=== PATIENT | female | born 1985 | race Caucasian/White ===

== ENCOUNTER 2019-09-29 11:08 | Emergency (ER) | payer MEDICAID ==
[2019-09-29 12:09] LABS: Bilirubin Negative (Negative); Blood, Urine 1+ (Negative); Clarity Clear (Clear); Glucose, Urine (Dipstick) Normal (Negative); Leukocyte 250 Leu/uL (Negative); Nitrite Negative (Negative); Protein, Urine (Dipstick) 10 mg/dL (Neg-Trace); RBC/HPF 0-3 HPF (0-3); Urobilinogen Normal mg/dL (Less than 2)
[2019-09-29 12:11] LABS: Bacteria/HPF 2+ HPF (None Seen)
== END 2019-09-29 12:21 | disposition home or self-care (01) ==
LOC: ERS 11:08
DX: N30.00 Acute cystitis without hematuria (principal); J45.909 Unspecified asthma, uncomplicated; I10 Essential (primary) hypertension; Z79.899 Other long term (current) drug therapy
CPT/HCPCS: 81003; 81015; 99283

== ENCOUNTER 2019-10-23 22:28 | Emergency (ER) | payer MEDICAID, SELFPAY ==
[2019-10-23] MEDS ORDERED: diphenhydrAMINE 25 MG CAP ONE (23:12)
[2019-10-23] MEDS ORDERED: Metoclopramide HCl 10 MG/2 ML VIAL ONE (23:12)
[2019-10-23] MEDS ORDERED: Ibuprofen 800 MG TAB ONE (23:12)
[2019-10-23] MEDS ORDERED: Metoclopramide HCl 10 MG TAB ONE (23:12)
== END 2019-10-23 23:17 | disposition home or self-care (01) ==
LOC: ERS 22:28
DX: G43.909 Migraine, unspecified, not intractable, without status migrainosus (principal); J45.909 Unspecified asthma, uncomplicated; I10 Essential (primary) hypertension; Z79.899 Other long term (current) drug therapy
CPT/HCPCS: 99283; J2765; Q0163

== ENCOUNTER 2019-11-21 10:17 | Emergency (ER) | payer SELFPAY | END 2019-11-21 11:03 | disposition home or self-care (01) | LOC: ERS 10:17 | DX: J11.1 Influenza due to unidentified influenza virus with other respiratory manifestations (principal); J45.909 Unspecified asthma, uncomplicated; I10 Essential (primary) hypertension; Z79.899 Other long term (current) drug therapy | CPT/HCPCS: 99283 ==

== ENCOUNTER 2019-12-28 13:42 | Emergency (ER) | payer SELFPAY ==
[2019-12-28 14:45] LABS: #Eosinphils 0.1 thou/uL (0.0-0.7); #Lymphocytes 1.9 thou/uL (1.20-3.40); #Monocytes 0.3 thou/uL (0.11-0.59); #Neutrophils 3.1 thou/uL (1.40-6.50); %Basophils 0.6 % (0.0-1.0); %Eosinophils 1.6 % (0.0-10.0); %Lymphocytes 35.5 % (21.0-51.0); %Monocytes 5.9 % (0.0-10.0); %Neutrophils 56.4 % (42.0-75.0); Hemoglobin 14.3 g/dL (12.0-16.0); Mean Corpuscular HGB CONC 34.6 g/dL (32.0-36.0); Mean Corpuscular Hemoglobin 30.8 pg (27.0-31.0); Mean Corpuscular Volume 89.2 fL (78.0-98.0); Mean Platelet Volume 8.5 fL (7.4-10.4); Platelet Count 309 thou/uL (130-400); RBC Distribution Width 12.5 % (11.5-14.5); Red Blood Cell (RBC) Count 4.65 mill/uL (4.20-5.40); White Blood Cell (WBC) Count 5.4 thou/uL (4.8-10.8)
[2019-12-28 14:46] LABS: Bilirubin Negative (Negative); Blood, Urine Negative (Negative); Clarity Clear (Clear); Glucose, Urine (Dipstick) Normal (Negative); Leukocyte 500 Leu/uL (Negative); Nitrite Negative (Negative); Pregnancy Test - Urine (BHCG) Negative (Negative); Pregu Control Background? CLEAR/WHITE (CLR/WHITE); Pregu Control Bar Appear? YES (CONTROL BAR); Protein, Urine (Dipstick) Negative (Neg-Trace); Specific Gravity 1.009 (1.002-1.036); Urobilinogen Normal mg/dL (Less than 2); WBC/HPF 21-50 HPF (0-3)
[2019-12-28 14:47] LABS: Bacteria/HPF 1+ HPF (None Seen)
[2019-12-28 15:04] LABS: ALT (SGPT) 31 U/L (8-55); AST (SGOT) 26 U/L (5-34); Albumin 4.3 g/dL (3.5-5.0); Alkaline Phosphatase 123 U/L (40-110); Anion Gap 13 mmol/L (10-20); BUN (Urea Nitrogen) 8 mg/dL (7.0-18.7); Bilirubin, Total 0.7 mg/dL (0.2-1.2); Calc. Creatinine Clearance 0 mL/min (70-130); Calcium 9.2 mg/dL (7.8-10.44); Carbon Dioxide 22 mmol/L (22-29); Chloride 108 mmol/L (98-107); Estimated GFR-MDRD Greater than 90; Globulin 4.3 g/dL (2.4-3.5); Glucose 79 mg/dL (70-105); Potassium 4.1 mmol/L (3.5-5.1); Protein, Total 8.6 g/dL (6.0-8.3); Sodium 139 mmol/L (136-145)
[2019-12-28] MEDS ORDERED: Ketorolac Tromethamine 30 MG/ML VIAL ONE (16:59)
[2019-12-28] MEDS ORDERED: cefTRIAXone\\ROCEPHIN 1 GM VIAL ONE (16:59)
== END 2019-12-28 18:14 | disposition home or self-care (01) ==
LOC: ERS 13:42
DX: N39.0 Urinary tract infection, site not specified (principal); R55 Syncope and collapse
CPT/HCPCS: 36415; 36416; 80053; 81003; 81015; 81025; 85025; 87077; 87086; 87186; 87804; 93005; 96365; 96375; J0696; J1885

== ENCOUNTER 2020-03-05 15:26 | Emergency (ER) | payer SELFPAY ==
[2020-03-05 15:46] LABS: Pregnancy Test - Urine (BHCG) POSITIVE (Negative); Pregu Control Background? CLEAR/WHITE (CLR/WHITE); Pregu Control Bar Appear? YES (CONTROL BAR); Specific Gravity 1.033 (1.002-1.036)
[2020-03-05 15:47] LABS: Bacteria/HPF 4+ HPF (None Seen); Bilirubin Negative (Negative); Blood, Urine 2+ (Negative); Clarity Turbid (Clear); Glucose, Urine (Dipstick) Normal (Negative); Leukocyte 500 Leu/uL (Negative); Nitrite 1+ (Negative); Protein, Urine (Dipstick) 100 mg/dL (Neg-Trace); RBC/HPF Greater than 50 HPF (0-3); WBC/HPF Greater than 50 HPF (0-3)
[2020-03-05 16:26] LABS: #Basophils 0.1 thou/uL (0.0-0.2); #Monocytes 0.6 thou/uL (0.11-0.59); #Neutrophils 5.3 thou/uL (1.40-6.50); %Basophils 0.8 % (0.0-1.0); %Eosinophils 0.5 % (0.0-10.0); %Lymphocytes 25.5 % (21.0-51.0); %Neutrophils 66.2 % (42.0-75.0); Hemoglobin 14.2 g/dL (12.0-16.0); Mean Corpuscular HGB CONC 34.6 g/dL (32.0-36.0); Mean Corpuscular Hemoglobin 30.9 pg (27.0-31.0); Mean Corpuscular Volume 89.4 fL (78.0-98.0); Mean Platelet Volume 8.4 fL (7.4-10.4); Platelet Count 254 thou/uL (130-400); RBC Distribution Width 12.8 % (11.5-14.5)
[2020-03-05 16:40] LABS: ALT (SGPT) 69 U/L (8-55); AST (SGOT) 44 U/L (5-34); Albumin 4.4 g/dL (3.5-5.0); Alkaline Phosphatase 109 U/L (40-110); Anion Gap 15 mmol/L (10-20); BUN (Urea Nitrogen) 8 mg/dL (7.0-18.7); Bilirubin, Total 0.8 mg/dL (0.2-1.2); Calc. Creatinine Clearance 0 mL/min (70-130); Calcium 9.3 mg/dL (7.8-10.44); Carbon Dioxide 20 mmol/L (22-29); Chloride 103 mmol/L (98-107); Estimated GFR-MDRD Greater than 90; Glucose 85 mg/dL (70-105); Potassium 3.8 mmol/L (3.5-5.1); Protein, Total 8.4 g/dL (6.0-8.3); Sodium 134 mmol/L (136-145)
--- NOTE | 2020-03-05 18:07 | ULT ---
Exam: Transabdominal and endovaginal pelvic ultrasound HISTORY:Positive home test yesterday. Pelvic discomfort. COMPARISON: None TECHNIQUE: Transabdominal and endovaginal imaging of the pelvis is performed. Ovaries are interrogate d with grayscale, color flow, Doppler imaging and spectral wave form analysis FINDINGS: Uterus: No myometrial masses. Uterus measurin.6 x 9.8 x 5.6 cm. Endometrium: Within the endometrium, there is a gestational sac, yolk sac and pole. [place]-rump length is 0.74 cm corresponding to gestational age of 6 weeks 4 days. Hypoechoic focus adjacent to the gestational sac may represent a 0.4 x 2 cm subchorionic hemorrhage. heart tones: 125 bpm . Free fluid: None Right ovary: Normal echotexture Right ovary measurement: 2.5 x 2.0 x 3.3 cm Left ovary: Normal echotexture. Left ovary measurements: 2.0 x 1.7 x 2.7 cm Ovarian Doppler: There is vascular flow to the left and right ovary. IMPRESSION: 1. Single intrauterine gestation with heart tones. Gestational age by crown-rump length is 6 we eks 4 days. 2. Small subchorionic hemorrhage.
== END 2020-03-05 18:22 | disposition home or self-care (01) ==
LOC: ERS 15:26
DX: O23.41 Unspecified infection of urinary tract in pregnancy, first trimester (principal); O20.8 Other hemorrhage in early pregnancy; Z3A.01 Less than 8 weeks gestation of pregnancy
CPT/HCPCS: 36415; 76856; 80053; 81003; 81015; 81025; 84702; 85025; 86850; 86900; 86901; 87077; 87086; 87186; 93976; 99283

== ENCOUNTER 2020-08-22 13:53 | Day surgery (SDC) | payer OTHER ==
[2020-08-22 14:51] VITALS: BMI 38.0
--- NOTE | 2020-08-22 15:10 | PDOC.LDHP ---
Labor and Delivery H&P Chief complaint: abdominal pain HPI: 34 y/o at 30w2d, patient of Dr. Higgins, presents with lower abdominal pain for 2 months, and intermittent dizziness for the last month. She describes the pain as sharp, lasting a few seconds. Better when she is able to lie down and rest. Dizziness described as lightheadedness when she changes positions; does not pass out. Drinks 3 bottles of water a day. Denies VB, LOF, ctx, or decreased FM. ROS neg for HEENT, cv, pulm, gi, gu, neuro, psych, musculoskeletal or constitutional symptoms other than mentioned above. OB History Details: 1 prior Current complications: none Past Medical History: RLS GERD Recurrent UTIs Current medications: pre- vitamins, other (Keflex) Previous surgical history: none Allergies/Adverse Reactions: Allergies Allergy/AdvReac Type Severity Reaction Status Date / Time No Known Allergies Allergy Verified 08/22/20 14:40 Social history: none - Physical Exam Vital signs reviewed and normal: yes General: NAD, resting Lungs: nonlabored breathing Abdomen: gravid Extremeties: no edema FHT: category 1 [place] contractions every: none - Assessment 34 y/o at 30w2d with musculoskeletal discomforts of . status reassuring with reactive NST. - Plan -: Comfort measures discussed. Advised to drink more water. D/c home with precautions. Advised to keep all appointments.
[2020-08-22] MEDS ORDERED: FLU VACC QS2020-21(6MOS UP)/PF 60 MCG/0.5 ML SYRINGE IM ONE (15:15)
== END 2020-08-22 15:19 | disposition home or self-care (01) ==
LOC: L&D/OP 13:53
PROVIDERS: ATTEND Obstetrics & Gynecology
DX: O26.893 Other specified pregnancy related conditions, third trimester (principal); R10.30 Lower abdominal pain, unspecified; R42 Dizziness and giddiness; O23.43 Unspecified infection of urinary tract in pregnancy, third trimester; Z3A.30 30 weeks gestation of pregnancy
CPT/HCPCS: 99282

== ENCOUNTER 2020-10-09 14:11 | Day surgery (SDC) | payer OTHER ==
[2020-10-09 14:36] VITALS: BP 117/66; TEMP 98.7
[2020-10-09 14:40] VITALS: BMI 38.4
[2020-10-09] MEDS ORDERED: hydrALAZINE 20 MG/ML VIAL SLOW IVP PRN (15:10)
--- NOTE | 2020-10-09 15:12 | PDOC.FPROB ---
FMR OB H&P: HPI - History of Present Illness Chief Complaint: contractions Indentification: 34 yo at 37.4 wga History of Present Illness: Patient reports onset of painful contractions around 9 pm last night which lasted until midnight. She could not really time them because the pain lasted for quite a while she said. She fell asleep until 4 am when the contractions woke her up again. Since then, they have not slowed down despite her eating/drinking water. In office last week, says she was 3 cm dilated. Denies vaginal bleeding, discharge, LOF. Endorses FM. Primary Care Physician: Monica FMR OB H&P: Current - Care : 2 Para: 1001 Gestational age: 37.4 Due date: 10/26/2020 Course/Complications: Anemia of - OB Labs Blood type: O RH: positive Antibody Screen: negative HIV: negative RPR: negative HepBsAg: negative Rubella: immune Quad screen: negative Urine drug screen: negative Gonorrhea: negative Chlamydia: negative 1 hour gtt: 105 GBS: negative FMR OB H&P: History - Past Medical History PMH: Denies - OB History OB History: 1 , complicated by bulging disk s/p epidural, walked w/ a walker for 3 months. Anemia of Denies ever having blood transfusion. - HEARING SPECIALIST History HEARING SPECIALIST History: Recurrent UTIs. On ppx keflex - Surgical History Sx History: Denies - Social History Social History: Denies smoking, drinking, drugs. - Family History Family History: Niece: prader-willi syndrome FMR OB H&P: Medications - Current Home Medications: Medication Instructions Recorded Confirmed Type Cephalexin [Keflex] 500 mg PO DAILY 08/22/20 10/09/20 History Pnv No.103/Folic/Om3s/Fish Oil 1 each PO DAILY 08/22/20 10/09/20 History [ Gummies] Allergies/Adverse Reactions: Allergies Allergy/AdvReac Type Severity Reaction Status Date / Time No Known Allergies Allergy Verified 08/22/20 14:40 FMR OB H&P: ROS - Review of Systems General: denies: fever/chills Eyes: denies: vision changes ENT: denies: nasal congestion, rhinorrhea, sore throat Cardiovascular: denies: chest pain Respiratory: reports: shortness of breath (with changes). denies: cough Gastrointestinal: denies: abdominal pain, nausea, vomiting Genitourinary (Female): reports: contractions. denies: dysuria, vaginal discharge, vaginal bleeding Musculoskeletal: denies: pain Neurologic: reports: headache (mild) Integumentary: denies: rash Hematologic/Lymphatic: denies: prolonged or excessive bleeding Psychological: denies: depression, anxiety FMR OB H&P: Vital Signs - Maternal Vital signs: Vital Signs - First Documented Temp Pulse Resp BP 98.7 F 97 18 117/66 10/09/20 14:36 10/09/20 14:36 10/09/20 14:36 10/09/20 14:36 - Heart Tones Baseline: 140 Variability: moderate Acceleration: present Deceleration: absent Category: category 1 [place] contractions every: 2-4 min FMR OB H&P: Physical Exam - Physical Exam General: NAD, awake, alert and oriented HEENT: normocephalic and atraumatic, no scleral icterus, grossly normal vision, grossly normal hearing Neck: trachea midline Heart: pulses present General: no respiratory distress, good air movement Abdomen: soft, gravid, non-tender Musculoskeletal: FROM in all four extremities Neurological: no focal deficit Skin: no rash Lymphatic: no unusual bruising or bleeding Psychiatric: intact recent and remote memory, normal mood and affect - Pelvic Exam SVE: 3/thick/high, per Rhonda PERALTA Membranes: intact Presentation: vertex, per patient. Estimated Weight: 7 lbs FMR OB H&P: A/P - Problem List (1) Uterine contractions Current Visit: Yes Status: Acute Code(s): [id number] - Disposition: observe on L&D. Recheck cervix in 1-2 hours and assess for change. Discussion: Date/Time: 10/09/20 1510 34 yo at 37.4 wga Contractions - rule out labor - monitor continuous FHT and toco for ~2 hours - will recheck to assess for cervical change - previous delivered around 37 weeks. - GBS negative Anemia of This H&P was discussed with Dr. Frost, who agrees with the above documentation and plan. Signature: Ninfa Watt MD PGY-2
--- NOTE | 2020-10-09 17:33 | PDOC.BPN ---
- Brief Progress Note Encounter Date: 10/09/20 Encounter Time: 16:30 Cervical check essentially unchanged: . Patient appears more comfortable and in less pain. Plan to discharge home. Pt agrees with plan. Return precautions, labor s/s given.
== END 2020-10-09 16:52 | disposition home or self-care (01) ==
LOC: L&D/OP 14:11
PROVIDERS: ATTEND Advanced Practice Midwife
DX: O47.1 False labor at or after 37 completed weeks of gestation (principal); O99.013 Anemia complicating pregnancy, third trimester; D64.9 Anemia, unspecified; Z3A.37 37 weeks gestation of pregnancy
CPT/HCPCS: 99283

== ENCOUNTER 2020-10-14 07:09 | Inpatient (IN) | payer OTHER ==
[2020-10-14] MEDS ORDERED: HYDROcodone/Acetaminophen 5/325 mg Tablet PO PRN ×4 (07:52→15:18)
[2020-10-14] MEDS ORDERED: Ibuprofen 800 MG TAB PO PRN (07:52)
[2020-10-14] MEDS ORDERED: hydrALAZINE 20 MG/ML VIAL SLOW IVP PRN ×2 (07:52→15:18)
[2020-10-14] MEDS ORDERED: Diphenoxylate HCl/Atropine Tablet PO PRN ×2 (07:52)
[2020-10-14] MEDS ORDERED: Carboprost 250 MCG/ML AMP IM PRN (07:52)
[2020-10-14] MEDS ORDERED: Butorphanol Tartrate 1 MG/ML VIAL SLOW IVP PRN (07:52)
[2020-10-14] MEDS ORDERED: Lidocaine 1% (PF) 30 ML VIAL SC PRN (07:52)
[2020-10-14] MEDS ORDERED: Acetaminophen 500 MG TAB PO PRN (07:52)
[2020-10-14] MEDS ORDERED: Promethazine HCl 25 MG/ML VIAL IM PRN (07:52)
[2020-10-14] MEDS ORDERED: Methylergonovine 0.2 MG/ML VIAL IM PRN (07:52)
[2020-10-14] MEDS ORDERED: Misoprostol 200 MCG TAB PR PRN (07:52)
[2020-10-14] MEDS ORDERED: Ondansetron PF 4 MG/2 ML Vial IVP PRN ×2 (07:52→15:18)
[2020-10-14] MEDS ORDERED: Lactated Ringer's 1,000 ML IV SCH (08:00)
[2020-10-14] MEDS ORDERED: DISCONTINUE ALL PREVIOUS NARCOTICS FS SCH (08:15)
[2020-10-14] MEDS ORDERED: Bupivacaine 0.5% 20 ML, fentaNYL Citrate/PF 400 MCG in Sodium Chloride 0.9% 72 ML EPIDURAL SCH (08:15)
[2020-10-14 08:19] LABS: Hemoglobin 11.2 g/dL (12.0-16.0); Mean Corpuscular Hemoglobin 29.1 pg (27.0-31.0); Mean Corpuscular Volume 85.5 fL (78.0-98.0); Mean Platelet Volume 8.2 fL (7.4-10.4); Platelet Count 280 thou/uL (130-400); RBC Distribution Width 13.5 % (11.5-14.5); Red Blood Cell (RBC) Count 3.84 mill/uL (4.20-5.40); White Blood Cell (WBC) Count 8.7 thou/uL (4.8-10.8)
[2020-10-14 08:27] VITALS: BMI 38.4
[2020-10-14 08:57] LABS: Syphilis Antibody Nonreactive (Nonreactive); Syphilis Antibody Index 0.04 S/CO (<1.00 Non-Reactive)
[2020-10-14 08:59] LABS: HBSAg Index 0.23 S/CO (0-0.99); Hep B Surf Ag Non-Reactive S/CO (NonReactive)
[2020-10-14] MEDS: NS / Oxytocin 40 units/1000ml 1,000 ML IV PRN ×2 (10:55→13:09)
--- NOTE | 2020-10-14 11:12 | PDOC.BPN ---
- Brief Progress Note 3B OB lac repaired by me under local. Dictated
--- NOTE | 2020-10-14 11:28 | OP ---
DATE OF PROCEDURE: 10/14/2020 TIME OF INTERVENTION: Roughly 11 o'clock. It is now about 1108 hours. LOCATION: Labor and Delivery in [facility]. REQUESTING PROVIDER: Nargis Cavanaugh CNM. REASON FOR EVALUATION: Suspected third-degree laceration. PROCEDURE: 3rd degree laceration repair (3B) DESCRIPTION OF PROCEDURE: I was called to room 5 as I was walking by, so I was immediately available. I evaluated the patient's perineum on request. This was now status post vaginal delivery without labor epidural. Nargis Cavanaugh was concerned that this was a third-degree laceration. I have evaluated the patient's perineum and I have diagnosed her with a 3B sphincter laceration. There was no violation of the rectal mucosa. I did put one finger into the patient's rectum, after discussing this with her, and I did not find any rectal wall involvement. Next, I used local anesthesia to numb the rectal sphincter capsule in order to place Allis clamps on each severed end of the transverse superficial perineal muscle and the external anal sphincter. Once these were identified, I bridged them together and reapproximated them using interrupted sutures at 4 points using 2-[address] needle. The patient tolerated the procedure well. Once this was done, the perineal body looked normal and had normal tone. Once again, these were at the 4 corners of the splayed or rectal sphincter. This was at the posterior, superior, and inferior ends and in the proximal superior and inferior ends. Once this was done, I did notice that there was a distal vaginal right sulcus vaginal tear and I reapproximated this under local with 2-0 chromic using 2 interrupted sutures. I left to the patient's perineum with no vaginal packs in place and I left it at a 2nd degree stage IV repair. Nargis Cavanaugh said that she felt comfortable with her second-degree repair as was typical of laceration correction. Once again, my portion of the procedure is laceration 3B repair under local anesthesia. Job ID: [id number] MTDD
[2020-10-14] MEDS ORDERED: Preparation H Ointment 28 GM TUBE PR PRN (15:18)
[2020-10-14] MEDS ORDERED: NS / Oxytocin 40 units/1000ml 1,000 ML IV SCH (15:18)
[2020-10-14] MEDS ORDERED: Lanolin Ointment 7 GM TUBE TOP PRN (15:18)
[2020-10-14] MEDS ORDERED: Bisacodyl 10 MG SUPP PR PRN (15:18)
[2020-10-14] MEDS ORDERED: Misoprostol 200 MCG TAB VAG PRN (15:18)
[2020-10-14] MEDS ORDERED: Benzocaine-Menthol 82.5 ML CAN TOP PRN (15:18)
[2020-10-14] MEDS: Ferrous Sulfate 325 MG TAB PO SCH (16:32)
[2020-10-14 17:16] LABS: SARS-CoV-2 MS2 Positive; SARS-CoV-2 N Gene Negative; SARS-CoV-2 S Gene Negative; SARS-CoV-2 by NAA Not Detected (NotDetected); SARS-CoV-2 orf1ab Negative
[2020-10-14] MEDS: Docusate Calcium (SURFAK) 240 MG CAP PO SCH (21:47)
[2020-10-14] MEDS: Ibuprofen 800 MG TAB PO SCH (21:47)
[2020-10-15] MEDS: Ibuprofen 800 MG TAB PO SCH ×3 (04:55→21:28)
--- NOTE | 2020-10-15 05:21 | PDOC.OPDEL ---
OB Operative/Delivery Note Delivery Dr/Surgeon: Light Pre-Delivery Diagnosis: active labor Procedure/Post Delivery Dx: spontaneous vaginal delivery Weeks gestation: 38 Anesthesia: none - Findings A Sex: male Weight: 6 lb 7 oz - 1 min: 8 - 5 min: 9 - Additional Findings/Plan Placenta delivered: spontaneous Repaired Obstetrical Laceration: 3rd degree (partial. Repaired by Dr. Yoder.) Estimated blood loss: 800mL Post delivery plan: routine recovery
--- NOTE | 2020-10-15 05:23 | PDOC.LDHP ---
Labor and Delivery H&P Chief complaint: contractions HPI: Patient arrives with strong contractions. +FM. denies LOF. vb. Current gestational age (weeks): 38 Current medications: pre-berenice vitamins Allergies/Adverse Reactions: Allergies Allergy/AdvReac Type Severity Reaction Status Date / Time No Known Allergies Allergy Verified 08/22/20 14:40 - Physical Exam Vital signs reviewed and normal: yes General: breathing through contractions Lungs: nonlabored breathing Abdomen: gravid FHT: category 1 - Vaginal Exam cm dilated: 6 Effacement: 90% Station: -2 - OB Labs Blood type: O RH: positive Antibody Screen: negative HIV: negative RPR: negative HEPSAg: negative 1 hour GCT: negative GBS: negative Urine drug screen: negative Rubella: immune - Assessment L&D Assessment: term patient in labor - Plan Plan: admit to L&D
[2020-10-15] MEDS: Docusate Calcium (SURFAK) 240 MG CAP PO SCH ×2 (10:02→21:27)
[2020-10-15] MEDS: Prenatal Vitamin 1 TAB PO SCH (10:02)
[2020-10-15] MEDS: Milk Of Magnesia 30 ML UDCUP PO PRN (10:02)
[2020-10-15] MEDS: Ferrous Sulfate 325 MG TAB PO SCH ×2 (10:03→17:25)
[2020-10-15] MEDS ORDERED: Adacel (T-DAP) 0.5 ML SYRINGE IM ONE (15:18)
[2020-10-16] MEDS: Ibuprofen 800 MG TAB PO SCH ×2 (05:02→13:10)
[2020-10-16 09:34] VITALS: BP 115/55; TEMP 97.6
[2020-10-16] MEDS: Ferrous Sulfate 325 MG TAB PO SCH (09:43)
[2020-10-16] MEDS: Prenatal Vitamin 1 TAB PO SCH (09:50)
[2020-10-16] MEDS: Docusate Calcium (SURFAK) 240 MG CAP PO SCH (09:50)
[2020-10-16] MEDS: Milk Of Magnesia 30 ML UDCUP PO PRN (13:08)
== END 2020-10-16 18:20 | disposition home or self-care (01) | DRG 807 ==
LOC: L&D/OP 07:09 → L&D 08:46 → 3SW 14:59
PROVIDERS: ADMIT Obstetrics & Gynecology; ATTEND Obstetrics & Gynecology
PROC: 10E0XZZ Delivery of Products of Conception, External Approach (ICD-10-PCS; principal; 2020-10-14)
PROC: 0KQM0ZZ Repair Perineum Muscle, Open Approach (ICD-10-PCS; 2020-10-14)
PROC: 10907ZC Drainage of Amniotic Fluid, Therapeutic from Products of Conception, Via Natural or Artificial Opening (ICD-10-PCS; 2020-10-14)
DX: O70.22 Third degree perineal laceration during delivery, IIIb (principal); Z37.0 Single live birth; Z3A.38 38 weeks gestation of pregnancy; Z20.828 Contact with and (suspected) exposure to other viral communicable diseases
CPT/HCPCS: 36415; 85027; 86780; 86850; 86900; 86901; 87340; 87635; 99285; J0595; J3010; J3490; U0003

== ENCOUNTER 2022-08-10 13:32 | Emergency (ER) | payer OTHER | END 2022-08-10 15:41 | disposition home or self-care (01) | LOC: ERS 13:32 | DX: K02.9 Dental caries, unspecified (principal) | CPT/HCPCS: 99282 ==

== ENCOUNTER 2022-08-26 20:50 | Emergency (ER) | payer OTHER | END 2022-08-26 23:00 | disposition home or self-care (01) | LOC: ERS 20:50 | DX: S83.92XA Sprain of unspecified site of left knee, initial encounter (principal); X50.9XXA Other and unspecified overexertion or strenuous movements or postures, initial encounter; Z79.899 Other long term (current) drug therapy ==